=== PATIENT | male | born 1975 | race Caucasian/White ===

== ENCOUNTER 2023-02-21 09:38 | Day surgery (SDC) | payer OTHER ==
[~2023-02-21] VITALS: Ht 167.6 cm; Wt 87.5 kg
[~2023-02-21 09:38] MED LIST: OMEPRAZOLE DR40 MG
[2023-02-21 13:15] VITALS: BP 128/78
== END 2023-02-21 13:05 | disposition home or self-care (01) | DRG 951 ==
LOC: ENDO 09:38 → ORM 09:45 → ENDO 10:30 → ORM 10:30 → ENDO 13:05
PROVIDERS: ATTEND Surgery
PROC: 0DBN8ZX Excision of Sigmoid Colon, Via Natural or Artificial Opening Endoscopic, Diagnostic (ICD-10-PCS; principal; 2023-02-21)
PROC: 0DJ08ZZ Inspection of Upper Intestinal Tract, Via Natural or Artificial Opening Endoscopic (ICD-10-PCS; 2023-02-21)
DX: Z12.11 Encounter for screening for malignant neoplasm of colon (principal); D12.5 Benign neoplasm of sigmoid colon; K64.8 Other hemorrhoids; K44.9 Diaphragmatic hernia without obstruction or gangrene; K81.1 Chronic cholecystitis; K21.9 Gastro-esophageal reflux disease without esophagitis; Z87.19 Personal history of other diseases of the digestive system; Z80.0 Family history of malignant neoplasm of digestive organs